=== PATIENT | male | born 1955 | race Caucasian/White ===

== ENCOUNTER 2021-12-08 17:17 | Day surgery (SDC) | payer OTHER, MEDICAID, SELFPAY ==
[2021-12-08] VITALS (50 sets, daily range): BP systolic 53–148; BP diastolic 36–134; PULSE 52–217; RESP 11–48; TEMP 36.1–36.8; O2SAT 96
--- NOTE | 2021-12-08 17:29 | W.ED.GENAD ---
Discharge Plan Disposition Patient Disposition: OTHER Condition: Critical Discharge Details Clinical Impression: Hemorrhagic shock, Ruptured aneurysm of common iliac artery Primary Care Provider: Adore Crouch ED Provider: Micah Vogt Discharge Data Discharge Date/Time-TO BE ENTERED AT DEPARTURE: 12/08/21 22:22 Discharge Physician: Joseluis Peterson Medical Decision Making 1744 -- 66-year-old male with history of type 2 diabetes who presented per EMS for hyperglycemia with a history of hernia repair x3 who presents for 2 episodes of vomiting, urinary frequency and lower abdominal pain today. Patient states he recently had an outpatient MRI near his [facility] which noted a mass and was referred for outpatient CT at [facility] for further evaluation. Blood pressure 99/64, heart rate 110s on arrival. He is afebrile and appears uncomfortable. His abdomen is soft, mildly distended and tender in the lower quadrants. Differential diagnosis includes colitis, diverticulitis, appendicitis, AAA, kidney stone, SBO. We will attempt to obtain CT from [facility]. We will place an IV, bolus IV fluids, screening labs, urinalysis, CT abdomen and pelvis and give a dose of IV Zofran and IV Tylenol and reassess. Patient given IV Zofran without relief and complaining of pain 10/18. We will hold on IV Tylenol and give a dose of IV Dilaudid and IV Phenergan. 1899 -- Labs reviewed. White blood cell count 29. Potassium 3.3. Glucose 381 with normal bicarb and anion gap minimally elevated at 13.2. Troponin negative. Pt re-evaluated during high volume in the ED. Patient noted to be significantly drowsy with worsening tachycardia after meds. Heart rate 130s to 140s. EKG noted a rate of 136, sinus tachycardia and no STEMI. Oxygen saturation diminished to high 80s to low 90s on room air and placed on 2 L nasal cannula oxygen and increased to 100%. Suspect this is after sedating narcotic medication. Systolic blood pressure 70s to 80s, now somewhat improved to 96/63. Pt inadvertantly pulled out his IV. Will place another IV and continue IV fluid hydration and send to radiology nu. Partner at bedside states that she thinks patient has prostate cancer. Will change CT abdomen pelvis to include chest abdomen pelvis. 1999 -- CT reviewed and notes a ruptured abdominal aneurysm. Patient's blood pressure has improved to a systolic of 130s. He remains drowsy and tachycardic in 130s. CT reviewed with Dr. Cervantes who recommends mass transfusion protocol. Also recommends MAST which we do not have available. 4 units of packed RBCs and FFP ordered. 1 g of TXA ordered. Stat [facility] transfer consult initiated. 2019 -- Case discussed with [facility] vascular surgery who accepts patient for transfer. We will transfer directly to the ED. Accepting ED physician Dr. Macias. 2039 -- HR remains elevated 120s and BP improving, 120s/90s. He remains drowsy but arousable and able to converse. [facility] air unavailable. [facility] ground to come by 2199. 2104 -- HR now 90s, BP more hypotensive, 91/60. Discussed with [facility] vascular surgery and pt may not survive until transport time. Discussed with general surgery Dr. Peterson who is now on-call and he will come in. Nursing hull outfit supervisor notified and will contact OR team. 2199 -- [facility] ground here.HR 110s. BP 90/67. [facility] air will not be able to intercept for possibly [address] Peterson will take to the OR. 2219 -- patient had a 30 second run of V. tach while still in the ED. He was given 150 mg amiodarone IV push. He is moaning and drowsy but able to answer some questions. SBP range between 70s-90s and prior to transfer to OR 129/70. [facility] air headed to [facility]. [facility] ground will go to the OR with Dr. Peterson. Medical Records Medical records reviewed: Yes I reviewed the patient's medical records. Imaging Data Radiologic Study: Radiologist's impression: Addendum created by Maite Solorio MD on 12/08/2021 8:25:14 PM EDT: Addendum:? There is essentially an aneurysm of the ascending aorta which measures 4 cm. Initial report created on 12/08/2021 8:16:08 PM EDT: CTA Chest With Contrast CTA Abdomen With Contrast Exam date and time: 12/08/2021 7:51 PM Age: 66 years old Clinical indication: Other: Tachycardia, abd pain, possible prostate cancer TECHNIQUE: Imaging protocol: Computed tomographic angiography of the chest with contrast. Computed tomographic angiography of the abdomen with contrast. 3D rendering (Not supervised by radiologist): MIP and/or 3D reconstructed images were created by the technologist. Radiation optimization: All CT scans at this facility use at least one of these dose optimization techniques: automated exposure control; mA and/or kV adjustment per patient size (includes targeted exams where dose is matched to clinical indication); or iterative reconstruction. Contrast material: 350; Contrast volume: 100 ml; Contrast route: INTRAVENOUS (IV);? COMPARISON: No relevant prior studies available. FINDINGS: VASCULATURE: Pulmonary arteries: Normal. No pulmonary emboli. Aorta: No aortic aneurysm. No aortic dissection. Celiac trunk and mesenteric arteries: No occlusion or significant stenosis. Renal arteries: No occlusion or significant stenosis. Left iliac arteries: The aneurysm of the left common iliac artery has ruptured. It measures 6.5 cm.. CHEST: Lungs: Unremarkable. No consolidation. No masses. Pleural spaces: Unremarkable. No pneumothorax. No pleural effusion. Heart: Unremarkable. No cardiomegaly. No pericardial effusion. ABDOMEN AND PELVIS: Liver: No mass. Gallbladder and bile ducts: Unremarkable. No calcified stones. No ductal dilation. Pancreas: Unremarkable. No mass. No ductal dilation. Spleen: Unremarkable. No splenomegaly. Adrenal glands: Unremarkable. No mass. Kidneys and ureters: Bilateral renal atrophy Stomach and bowel: Unremarkable. No obstruction. No mucosal thickening. Intraperitoneal space: Unremarkable. No free air. No significant fluid collection. Retroperitoneal space: There is a large amount of hemorrhage in the retroperitoneum consistent with ruptured aneurysm. Hemorrhage measures at least 23 x 9 cm There is intramuscular hemorrhage in the psoas muscles. Lymph nodes: Unremarkable. No enlarged lymph nodes. Bones/joints: Soft tissue mass around the sacrum and lytic process of the sacrum. See series 4, image 80. This may represent metastatic disease.. Soft tissues:? Unremarkable ?THIS REPORT CONTAINS FINDINGS THAT MAY BE CRITICAL TO PATIENT CARE. The findings were verbally communicated via telephone conference with micah vogt at 8:14PM EDT on 12/08/2021. The findings were acknowledged and understood. IMPRESSION: 1. The aneurysm of the left common iliac artery has ruptured. It measures 6.5 cm.. 2. There is a large amount of hemorrhage in the retroperitoneum consistent with ruptured aneurysm. Hemorrhage measures at least 23 x 9 cm There is intramuscular hemorrhage in the psoas muscles. 3. Soft tissue mass around the sacrum and lytic process of the sacrum. See series 4, image 80, 81. This may represent metastatic disease.. Lab Data Lab results reviewed: Yes I reviewed the patient's lab results. Labs: Laboratory Tests Range/Units 12/08/21 12/08/21 12/08/21 18:30 18:30 20:28 WBC (4.4-10.8) 10^3/uL 29.03 H* RBC (4.36-5.78) 10^6/uL 4.08 L Hgb (13.5-17.5) g/dL 13.7 Hct (40.0-50.0) % 38.9 L MCV (80-95) fL 95 MCH (27.0-33.0) pg 33.6 H MCHC (32.0-36.0) % 35.2 RDW (11.8-14.1) % 12.4 Plt Count (130-400) 10^3/uL 343 MPV (8.0-11.0) fL 9.7 Immature Gran % 0.7 Neutrophils % 80.6 Lymphocytes % 10.8 Monocytes % 7.3 Eosinophils % 0.3 Basophils % 0.3 Nucleated RBC % (0.0-0.3) % 0.0 Absolute Neutrophils (1.2-6.7) 10^3/uL 23.40 H Absolute Lymphocytes (1.2-3.4) 10^3/uL 3.14 Absolute Monocytes (0.1-0.8) 10^3/uL 2.12 H Absolute Eosinophils (0.0-0.7) 10^3/uL 0.09 Absolute Basophils (0.0-0.2) 10^3/uL 0.09 Sodium (136-145) mmol/L 139 Potassium (3.5-5.1) mmol/L 3.3 L Chloride (98-107) mmol/L 101 Carbon Dioxide (21.0-32.0) mmol/L 24.8 Anion Gap (3-11) mmol/L 13.2 H BUN (7-18) mg/dL 25 H Creatinine (0.70-1.30) mg/dL 1.3 Est GFR (CKD-EPI 2020) (mL/min/1.73m2) 60.21 Glucose (74-106) mg/dL 381 H Calcium (8.5-10.1) mg/dL 8.6 Magnesium (1.8-2.4) mg/dL 1.9 Total Bilirubin (0.2-1.0) mg/dL 0.5 AST (15-37) U/L 12 L ALT (16-63) U/L 28 Alkaline Phosphatase (46-116) U/L 68 Troponin I (<or=60) ng/L < 50 Total Protein (6.4-8.2) g/dL 6.4 Albumin (3.4-5.0) g/dL 3.2 L Crossmatch See Detail ECG Data Attestation: I personally reviewed and interpreted this ECG (s) as follows: Interpretation: rate of 136, sinus, PVCs, no stemi. HPI General Mode of arrival: ambulatory. Date/Time Provider Initiated Documentation: 12/08/21 17:26. Limitations to Documentation: no limitations. Information obtained by: patient. HPI Narrative: Patient is a 66-year-old male with a history of diabetes type 2, sleep apnea, coronary artery stent placement and hernia repair x3 reportedly brought in by EMS for abdominal pain, vomiting and hyperglycemia c/o 2 episodes of vomiting and lower abdominal pain since this afternoon. Patient states he ate a corn muffin and within 15 minutes developed lower abdominal pain and vomiting. Patient states he vomited mainly white mucus. He describes the abdominal pain as located below my navel and is pressure-like and intermittent. He states the pain is worse with any movement. Patient states he has not taken any medications for diabetes since he stopped them a few years ago as he did not want to take medication. He states he is mainly followed by a [employer] et[employer] developer but also a primary care medical doctor. Patient states he recently was having buttock pain and was referred for an outpatient MRI from his [employer] et[employer] developer and he was noted to have a mass. Patient states he was referred by his primary care doctor for a CT of the mass at [facility] which he had done last week but states he does not know the results. He denies any fever or diarrhea. He does also admit to urinary frequency today. Related Data Home Medications Medication Instructions Recorded Confirmed Unknown [No Known Home Meds] 12/08/21 12/08/21 Allergies Allergy/AdvReac Type Severity Reaction Status Date / Time house dust Allergy Intermediate Other (See Unverified 12/08/21 19:18 Comment) mold Allergy Intermediate Other (See Unverified 12/08/21 19:18 Comment) General Stated Complaint: Abd Prob Review of Systems All systems reviewed & are unremarkable except as noted in HPI and below Constitutional Constitutional: Denies chills, Denies excessive sweating, Denies fatigue, Denies fever(s), Denies weakness and Denies weight loss Eyes Eyes: Reports system reviewed and no additional complaints, except as documented and Denies blurry vision ENT Ears, Nose, Mouth, and Throat: Denies vertigo, Denies dizziness, Denies otalgia, Denies nasal congestion, Denies sore throat and Denies throat swelling Cardiovascular Cardiovascular: Denies chest pain, Denies syncope, Denies rapid heart rate and Denies dyspnea Respiratory Respiratory: Denies chest congestion, Denies cough, Denies pain on inspiration and Denies dyspnea Gastrointestinal Gastrointestinal: Reports abdominal pain, Denies diarrhea, Reports nausea and Reports vomiting Genitourinary Genitourinary: Denies hematuria, Denies dysuria and Denies flank pain Musculoskeletal Musculoskeletal: Denies back pain and Denies joint swelling Integumentary/Breasts Skin/Breast: Denies lesions and Denies rash Neurologic Neurologic: Denies behavioral changes, Denies confusion, Denies vertigo, Denies dizziness, Denies syncope, Denies localized weakness and Denies weakness Psychiatric Psychiatric: Denies behavioral changes, Denies confusion and Denies depression Endocrine Endocrine: Denies excessive sweating and Denies fatigue Hematologic/Lymphatic Hematologic/Lymphatic: Denies easy bruising and Denies lymphadenopathy Allergic/Immunologic Allergic/Immunologic: Denies throat swelling PFSH All Active Problems (Updated 12/08/21 @ 23:59 by Micah Vogt DO) Hemorrhagic shock (Acute) Ruptured aneurysm of common iliac artery (Acute) Medical History Diabetes type 2, controlled Prostate cancer Sleep apnea Surgical History History of coronary artery stent placement History of hernia repair Social History Smoking/Tobacco Use Status: Unknown Smoking risk assessment performed?: Yes Substance use type: unknown Do you feel safe at home: Yes Do you feel safe in your relationship?: Yes Exam Const General: cooperative and uncomfortable Orientation: awake HENMT Head: normal to inspection Ears: hearing grossly normal bilaterally and external ears normal General nose exam: external nose normal Face and sinus: normal facial exam Mouth: oral mucosae normal and moist mucous membranes Teeth and gingiva: poor dentition Eyes General: appearance normal, both eyes and all related structures Eyelids: eyelids normal EOM: EOM intact bilaterally Neck Neck: normal visual inspection Lymphatic: no lymphadenopathy noted Chest Chest: normal inspection of the chest Resp Effort & Inspection: normal respiratory effort and able to speak in complete sentences Auscultation: clear to auscultation bilaterally Cardio Rate: tachycardic Rhythm: regular rhythm GI Inspection: normal to inspection Palpation: soft, not firm, no guarding, no hepatosplenomegaly, no masses and tender in the LLQ, in the RLQ and suprapubicly Auscultation: hypoactive bowel sounds Skin General skin exam: no rashes or lesions noted Neuro General: patient alert and patient awake Cognition: normal cognition Speech: speech normal Motor: muscle tone normal throughout Sensory Exam: no sensory deficits noted Extrem General: normal to inspection, full ROM, capillary refill normal and no edema Psych Appearance: grossly normal Mental Status: mental status grossly normal Speech and Movement: speech and movement normal Affect: normal affect Thought Process: normal Critical Care Time Critical Care Time Critical Care Time: Yes Total Critical Care Time: 120 Attestation: I spent 120 minutes of critical care time with this patient. This does not include time spent on separately reported billable procedures.
[2021-12-08] MEDS: HYDROmorphone 2 MG/ML SYR 1 MG IVP ×2 (18:25→20:24)
[2021-12-08 18:37] LABS: Absolute Basophil Count 0.09 10^3/uL (0.0-0.2); Absolute Eosinophil Count 0.09 10^3/uL (0.0-0.7); Absolute Lymphocyte Count 3.14 10^3/uL (1.2-3.4); Basophils % 0.3; Eosinophils % 0.3; HCT 38.9 % (40.0-50.0); HGB 13.7 g/dL (13.5-17.5); Immature Grans % 0.7; Lymphocytes % 10.8; MCH 33.6 pg (27.0-33.0); MCHC 35.2 % (32.0-36.0); MCV 95 fL (80-95); MPV 9.7 fL (8.0-11.0); Monocytes % 7.3; Neutrophils % 80.6; Platelet Count 343 10^3/uL (130-400); RBC 4.08 10^6/uL (4.36-5.78); RDW 12.4 % (11.8-14.1); RDW-SD 42.7 fL
[2021-12-08 18:40] LABS: Absolute Monocyte Count 2.12 10^3/uL (0.1-0.8); WBC 29.03 10^3/uL (4.4-10.8)
[2021-12-08 18:54] LABS: ALT 28 U/L (16-63); AST 12 U/L (15-37); Albumin 3.2 g/dL (3.4-5.0); Alkaline Phosphatase 68 U/L (46-116); Anion Gap 13.2 mmol/L (3-11); BUN 25 mg/dL (7-18); Bilirubin, Total 0.5 mg/dL (0.2-1.0); CO2 24.8 mmol/L (21.0-32.0); CREATININE 1.3 mg/dL (0.70-1.30); Calcium 8.6 mg/dL (8.5-10.1); Chloride 101 mmol/L (98-107); Estimated GFR 60.21 (mL/min/1.73m2); Glucose 381 mg/dL (74-106); Magnesium 1.9 mg/dL (1.8-2.4); Potassium 3.3 mmol/L (3.5-5.1); Sodium 139 mmol/L (136-145); Total Protein 6.4 g/dL (6.4-8.2); Troponin I < 50 ng/L (<or=60)
--- NOTE | 2021-12-08 19:15 | RT.EKG_ITS ---
APPROVED REPORT Exam: Resting ECG Reason for Exam: tachycardia Patient Location: E HR:136 bpm ECG Measurements Heart Rate 136 AXIS NV 110 P 36 QRSd 110 QRS 73 QT 320 T -62 QTc 480 Conclusion Sinus tachycardia...rate> 99 Ventricular premature complex...V complex w/ short R-R interval Inferior infarct, age indeterminate...Q>35mS, T neg, II III aVF. Sinus. PVCs. No STEMI. I have reviewed and interpreted ECG and agree with software generated interpretation.
--- NOTE | 2021-12-08 19:15 | DI.CT_ITS ---
Exam(s) CT CHEST PE ABD PELVIS W EXAM: CT CHEST PE ABD PELVIS W CLINICAL HISTORY: tachycardia, abd pain, possible h/o prostate ca. TECHNIQUE: Imaging Protocol: Axial CT angiography was performed with multi-slice acquisition and m ulti-planar and/or 3D reconstructions. CONTRAST MATERIAL: Intravenous: Omnipaque 350 Contrast volume:100 ml Oral: None COMPARISON: No exams were available for comparison FINDINGS: CHEST: PULMONARY ARTERIES: There are no intra-arterial filling defects to suggest the presence of acute pulm onary emboli. LUNGS: There is no evidence of pulmonary infarction.No confluent infiltrates there are no pleural eff usions.There is density on the posterior wall of the right mainstem bronchus, possible focal mucous v ersus is a nodule at this location. MEDIASTINUM: There is no hilar nor mediastinal adenopathy. Visualized thyroid unremarkable. CARDIAC: Heart size is normal. There is no pericardial effusion. There is no significant shift of t he interventricular septum.Caliber thoracic aorta is upper normal. OSSEOUS: No significant osseous lesions.. ABDOMEN: The main findings here are in the pelvis. There is a 6.5 cm ruptured aneurysm of the left common anusha ac artery. There is a large amount of hemorrhage in the retroperitoneum and tracking along the psoas muscles. LIVER: There are no focal hepatic lesions nor dilatation of intrahepatic ducts. GALLBLADDER/BILIARY: No obvious gallbladder pathology. CBD is not dilated. PANCREAS: No evidence of pancreatic mass nor dilatation of the pancreatic duct. SPLEEN: Spleen is not enlarged. There are no intrasplenic lesions. Splenic and portal veins are mccrary nt. ADRENALS: There are no significant adrenal masses. KIDNEYS:No cysts evident. No calculi nor hydronephrosis. No solid renal masses. ABDOMINAL AORTA: Atherosclerotic and with fusiform infrarenal abdominal aortic aneurysm maximum diame ter 3.5 cm. However, there is more impressive aneurysmal dilatation of the left common iliac artery which exhibits 6.5 cm aneurysm which is ruptured and is the cause of the large amount of retroperiton eal hemorrhage. LYMPH NODES: There is no retroperitoneal or para-aortic adenopathy. ABDOMINAL WALL/GI: No evidence of significant anterior abdominal wall hernia. No bowel obstruction. PELVIS: LYMPH NODES: There is an enlarged lymph node in the lower right pelvis medial to the obturator business development intern us muscle, this measuring 2.1 x 1.7 cm (series 4/image 83) GI: No evidence of appendicitis.No evidence of sigmoid diverticulitis. URINARY BLADDER: No calculi nor masses evident REPRODUCTIVE: Prostate size upper normal. Seminal vesicles unremarkable. OSSEOUS: There is a neoplastic appearing lytic lesion in the lower sacrum-coccyx with associated soft tissue mass. No other osseous lesions in the field of view of this study. IMPRESSION: 1. There is a ruptured aneurysm of the left common iliac artery. This aneurysm exhibits diameter 6.5 cm. There is a large amount of associated hemorrhage in the retroperitoneum. There is also an aneu rysm of the lower half of the abdominal aorta which exhibits maximum diameter of 3.5 cm. 2. There is a soft tissue mass and lytic process in the lower sacrum. This has neoplastic appearance , probably metastatic disease. However, there is no obvious primary source evident in the abdomen an d pelvis on this study. 3. No evidence of acute pulmonary emboli, and there are no metastatic appearing nodules in either cindi g field nor pleural effusions. Also no intrathoracic adenopathy. First read by [facility]. RADIATION DOSE DELIVERED: 1,883.21mGy.cm Total DLP DATA REPOSITORY: All CT scans at this facility are submitted to the National Radiology Data Registry (NRDR) Dose Index Registry (DIR) with the [employer] (A[employer]). RADIATION OPTIMIZATION: All CT scans at this facility use at least one of these dose optimization te chniques: automated exposure control; mA and/or kV adjustment per patient size (includes targeted exa ms where dose is matched to clinical indication); or iterative reconstruction.
[2021-12-08] MEDS: Tranexamic Acid 1,000 MG/10 ML VIAL 1000 MG IVP ×2 (20:08→21:10)
--- NOTE | 2021-12-08 20:17 | DI.VRAD_ITS ---
Addendum created by Maite Solorio MD on 12/08/2021 8:25:14 PM EDT: Addendum: There is essentially an aneurysm of the ascending aorta which measures 4 cm. Initial report created on 12/08/2021 8:16:08 PM EDT: PROCEDURE INFORMATION: Exam: CTA Chest With Contrast CTA Abdomen With Contrast Exam date and time: 12/08/2021 7:51 PM Age: 66 years old Clinical indication: Other: Tachycardia, abd pain, possible prostate cancer TECHNIQUE: Imaging protocol: Computed tomographic angiography of the chest with contrast. Computed tomographic angiography of the abdomen with contrast. 3D rendering (Not supervised by radiologist): MIP and/or 3D reconstructed images were created by the technologist. Radiation optimization: All CT scans at this facility use at least one of these dose optimization techniques: automated exposure control; mA and/or kV adjustment per patient size (includes targeted exams where dose is matched to clinical indication); or iterative reconstruction. Contrast material: 350; Contrast volume: 100 ml; Contrast route: INTRAVENOUS (IV); COMPARISON: No relevant prior studies available. FINDINGS: VASCULATURE: Pulmonary arteries: Normal. No pulmonary emboli. Aorta: No aortic aneurysm. No aortic dissection. Celiac trunk and mesenteric arteries: No occlusion or significant stenosis. Renal arteries: No occlusion or significant stenosis. Left iliac arteries: The aneurysm of the left common iliac artery has ruptured. It measures 6.5 cm.. CHEST: Lungs: Unremarkable. No consolidation. No masses. Pleural spaces: Unremarkable. No pneumothorax. No pleural effusion. Heart: Unremarkable. No cardiomegaly. No pericardial effusion. ABDOMEN AND PELVIS: Liver: No mass. Gallbladder and bile ducts: Unremarkable. No calcified stones. No ductal dilation. Pancreas: Unremarkable. No mass. No ductal dilation. Spleen: Unremarkable. No splenomegaly. Adrenal glands: Unremarkable. No mass. Kidneys and ureters: Bilateral renal atrophy Stomach and bowel: Unremarkable. No obstruction. No mucosal thickening. Intraperitoneal space: Unremarkable. No free air. No significant fluid collection. Retroperitoneal space: There is a large amount of hemorrhage in the retroperitoneum consistent with ruptured aneurysm. Hemorrhage measures at least 23 x 9 cm There is intramuscular hemorrhage in the psoas muscles. Lymph nodes: Unremarkable. No enlarged lymph nodes. Bones/joints: Soft tissue mass around the sacrum and lytic process of the sacrum. See series 4, image 80. This may represent metastatic disease.. Soft tissues: Unremarkable THIS REPORT CONTAINS FINDINGS THAT MAY BE CRITICAL TO PATIENT CARE. The findings were verbally communicated via telephone conference with micah dewitt at 8:14PM EDT on 12/08/2021. The findings were acknowledged and understood. IMPRESSION: 1. The aneurysm of the left common iliac artery has ruptured. It measures 6.5 cm.. 2. There is a large amount of hemorrhage in the retroperitoneum consistent with ruptured aneurysm. Hemorrhage measures at least 23 x 9 cm There is intramuscular hemorrhage in the psoas muscles. 3. Soft tissue mass around the sacrum and lytic process of the sacrum. See series 4, image 80, 81. This may represent metastatic disease.. Dictated and Authenticated by: Maite Solorio MD. Ordering:DANIS Gould MD
[2021-12-08 20:47] LABS: Source Nasal/Nares
[2021-12-08] MEDS: Ondansetron 4 MG/2 ML VIAL IVP (21:00)
[2021-12-08] MEDS: Normal Saline 1,000 ML 1000 ML IV (21:12)
[2021-12-08 21:17] LABS: COVID-19 PCR Negative (Negative)
--- NOTE | 2021-12-08 22:45 | NUR.NOTE ---
The patient was somnolent after his first dose of dilaudid, however he roused to his name and noted good pain relief. Blood and FFP were given.There were multiple caregivers in the room at any time, including anesthesia providers, surgery, and members of the [facility] team. He was taken to the OR at approximately 22:20
--- NOTE | 2021-12-08 23:46 | W.PM.DS.N ---
Date of service: 12/08/21 Time of Service: 23:46 DS: Diagnosis Discharge Diagnosis (1) Ruptured aneurysm of common iliac artery: Status: Acute Asessment and Plan: Intraoperative from hemorrhagic shock Discharge Plan Disposition Patient Disposition: Discharge Details Attending Provider: Joseluis Peterson Primary Care Provider: Adore Crouch Discharge Data Date/Time: 12/08/21 23:06 Cause of : Hemorrhage Discharge Physician: Joseluis Peterson DS: Summary Time Spent with Patient providing and/or coordinating discharge services: Less than 30 minutes Status at Discharge Functional status at discharge: bed bound Overall status at discharge: other () Mental Status: other () Speech and Movement: other (none) Mood: other () Affect: other () Exam Psych Mental Status: other () Speech and Movement: other (none) Mood: other () Affect: other () DS: Data Vitals/I&O Vitals and I&O: Vital Signs Temperature 97.0 F L 12/08/21 18:25 Temperature Source Temporal Artery Scan 12/08/21 17:30 Pulse 84 12/08/21 21:06 Pulse 88 12/08/21 21:06 Respiratory Rate 28 H 12/08/21 21:06 Respiratory Effort 12/08/21 17:29 Blood Pressure 94/82 L 12/08/21 21:06 Blood Pressure Mean 85 12/08/21 21:06 Blood Pressure Position Sitting 12/08/21 17:30 Pulse Oximetry 96 12/08/21 17:30 Oxygen Delivery Method Room Air 12/08/21 17:30 Oxygen Flow Rate 0 12/08/21 17:30 Pain Level 9 12/08/21 22:39 Intake & Output 12/07/21 12/08/21 12/08/21 23:59 11:59 23:59 Intake Total Balance Weight 227 lb 1.218 oz Intake: IV Data Completed and Pending Labs on day of discharge: Labs from last 24 hours 12/08/21 12/08/21 12/08/21 20:45 20:28 20:03 WBC RBC Hgb Hct MCV MCH MCHC RDW Plt Count MPV Immature Gran % Neutrophils % Lymphocytes % Monocytes % Eosinophils % Basophils % Nucleated RBC % Absolute Neutrophils Absolute Lymphocytes Absolute Monocytes Absolute Eosinophils Absolute Basophils VBG pH Pending VBG pCO2 Pending VBG pO2 Pending VBG HCO3 Pending VBG Total CO2 Pending VBG O2 Saturation Pending VBG Base Excess Pending Sodium Potassium Chloride Carbon Dioxide Anion Gap BUN Creatinine Est GFR (CKD-EPI 2020) Glucose Calcium Magnesium Total Bilirubin AST ALT Alkaline Phosphatase Troponin I Total Protein Albumin Lipase COVID-19 Source Nasal/Nares SARS-CoV-2 (PCR) Negative Patient ABO/Rh A Positive Antibody Screen NEGATIVE Crossmatch See Detail 12/08/21 12/08/21 12/08/21 19:23 18:30 18:30 WBC 29.03 H* RBC 4.08 L Hgb 13.7 Hct 38.9 L MCV 95 MCH 33.6 H MCHC 35.2 RDW 12.4 Plt Count 343 MPV 9.7 Immature Gran % 0.7 Neutrophils % 80.6 Lymphocytes % 10.8 Monocytes % 7.3 Eosinophils % 0.3 Basophils % 0.3 Nucleated RBC % 0.0 Absolute Neutrophils 23.40 H Absolute Lymphocytes 3.14 Absolute Monocytes 2.12 H Absolute Eosinophils 0.09 Absolute Basophils 0.09 VBG pH VBG pCO2 VBG pO2 VBG HCO3 VBG Total CO2 VBG O2 Saturation VBG Base Excess Sodium 139 Potassium 3.3 L Chloride 101 Carbon Dioxide 24.8 Anion Gap 13.2 H BUN 25 H Creatinine 1.3 Est GFR (CKD-EPI 2020) 60.21 Glucose 381 H Calcium 8.6 Magnesium 1.9 Total Bilirubin 0.5 AST 12 L ALT 28 Alkaline Phosphatase 68 Troponin I < 50 Total Protein 6.4 Albumin 3.2 L Lipase Pending COVID-19 Source SARS-CoV-2 (PCR) Patient ABO/Rh Antibody Screen Crossmatch PFSH All Active Problems Ruptured aneurysm of common iliac artery (Acute) Hypotension (Acute) Medical History Diabetes type 2, controlled Prostate cancer Sleep apnea Surgical History History of coronary artery stent placement History of hernia repair Social History Smoking/Tobacco Use Status: Unknown Smoking risk assessment performed?: Yes Substance use type: unknown Do you feel safe at home: Yes Do you feel safe in your relationship?: Yes
--- NOTE | 2021-12-08 23:57 | ROE_ITS ---
Date of service: 12/08/21 Time of Service: 23:57 Operative Note Operative Note DATE OF PROCEDURE: 12/08/21 PRE-OP DIAGNOSIS: Ruptured left common iliac artery with hemorrhagic shock POST-OP DIAGNOSIS: same PROCEDURE: Exploratory laparotomy SURGEON: Joseluis Peterson HIRED HELP: Josiah Carmona ANESTHESIA TYPE: General LMA/ETT Refer to Anesthesia Record PATHOLOGY: none sent COMPLICATIONS: Other (Intraoperative ) Patient was transported [place]: [place] [place] Patient's condition: Indications: Benji is a 66-year-old male who walked into the emergency department with lower abdominal pain and vomiting. He was hypotensive and tachycardic. CAT scan demonstrated a ruptured left common iliac artery aneurysm. Attempts were made to arrange for transfer to [facility]. Unfortunately, aeromedical transport was not available. He was resuscitated with blood products, and we moved emergently to the operating room because of refractory shock despite resuscitation Procedure Description: We began resuscitation in the emergency department. I placed a right-sided femoral triple-lumen catheter to assist with additional access for blood product transfusion which was being administered using the Bates rapid infuser. I quickly explained to Benji that he was dying from a ruptured aneurysm and tj millicent was the only way to try to fix it. He provided informed verbal consent, but because of the urgency of the situation, he did not sign a consent document. We then moved emergently to the operating room. I inserted a Odonnell urinary catheter using aseptic technique, and I prepped and draped the abdomen in the usual fashion. I prepped both groins into the field. Next, with the induction of general anesthesia, I made a large midline laparotomy incision. I dissected down to the fascia sharply. I opened the fascia along the length of the midline with large Blood scissors. There was a previous ventral hernia mesh that I divided. There was hemoperitoneum. I packed all 4 quadrants. I then used the Bookwalter to establish exposure. Next, I incised the peritoneum of the ascending colon and used a Cattell- Barasch maneuver to expose the retroperitoneum. I mobilized the entire small bowel mesentery to gain control of the descending aorta. There was massive retroperitoneal hematoma which was quickly evacuated. Next, using direct pressure on the aorta against the vertebral bodies we established aortic occlusion. Next I incised the overlying soft tissue of the aorta with Metzenbaum scissors. I dissected both sides of the aorta and used a straight vascular clamp to control the aorta immediately at the bifurcation of the iliacs. There was blood welling up from zone 3 of the pe lvis, and it appeared to be more on the left side consistent with the preoperative imaging. The large nature of the aneurysm precluded control of the left iliac artery proper. I tried to make an incision in the groin to get control of the left common femoral artery in an effort to reduce backbleeding from the pelvis. But during this time, his hemodynamics continued to deteriorate despite blood product resuscitation and the administration of several vasoactive medications. Therefore, I turned my attention back to the laparotomy incision and sharply dissected over the iliac aneurysm down towards the left external iliac artery. I then used tight packs to completely obliterate the left hemipelvis space and held direct pressure over the ruptured aneurysmal iliac artery. Despite ongoing efforts by anesthesia services to continue the resuscitation, he lost a palpable pulse in the descending aorta proximal to the aortic cross-clamp. External chest compressions were briefly initiated, but we were never able to reestablish any perfusable organized cardiac activity. I certified the , and we stop the operating. I removed the surgical instruments and closed the midline laparotomy incision with skin jewel as well as a left groin incision. At the conclusion of the operation, I contacted Camila Winstonradha at [phone]. She identified herself as his partner, and I explained his diagnosis and the course of the efforts to save him. I answered all of her questions as best I could, and provided contact information for any other questions that might arise.
--- NOTE | 2021-12-09 00:10 | ANES.PREOP_ITS ---
General Info Date of Service Date Performed: 12/09/21 Height: 6 ft Weight: 103 kg Body Mass Index (BMI): 30.8 Surgical Procedure: Operation Date: 12/08/21 21:45 Proposed Procedure Side Surgeon p Exploratory Laparotomy Not Applicable Joseluis Peterson MD Meds Allergies and Home Medications Allergies Allergy/AdvReac Type Severity Reaction Status Date / Time house dust Allergy Intermediate Other (See Unverified 12/08/21 19:18 Comment) mold Allergy Intermediate Other (See Unverified 12/08/21 19:18 Comment) Home Medication Medication Instructions Recorded Unknown [No Known Home Meds] 12/08/21 Current Visit Medications: Current Medications Generic Name Dose Route Start Last Admin Trade Name Freq PRN Reason Stop Dose Admin Ringer's Solution 1,000 mls @ 150 mls/hr 12/08/21 21:15 IV INFUSION TAMMIE PFSH Active Problems Active Problems: Problem Status Onset Code Hemorrhagic shock R57.8 Ruptured aneurysm of common iliac artery I72.3 Medical History Medical History Diabetes type 2, controlled Prostate cancer Sleep apnea Surgical History Surgical History History of coronary artery stent placement History of hernia repair Tobacco Smoking/Tobacco Use Status: Unknown Substance Use Substance use type: unknown Vital Signs and Lab Results Vital Signs Most Recent Vital Signs in EMR: Most Recent Vital Signs Temp Pulse Resp BP Pulse Ox 36.1 C L 84 28 H 94/82 L 96 12/08/21 18:25 12/08/21 21:06 12/08/21 21:06 12/08/21 21:06 12/08/21 17:30 Lab Results Result Diagrams: 12/08/21 18:30 12/08/21 18:30 Blood Type / Crossmatch: Patient ABO/Rh A Positive 12/08/21 Antibody Screen NEGATIVE 12/08/21 Crossmatch See Detail 12/08/21 Complete Blood Count: White Blood Count 29.03 10^3/uL (4.4-10.8) H* 12/08/21 18:30 Red Blood Count 4.08 10^6/uL (4.36-5.78) L 12/08/21 18:30 Hemoglobin 13.7 g/dL (13.5-17.5) 12/08/21 18:30 Hematocrit 38.9 % (40.0-50.0) L 12/08/21 18:30 Platelet Count 343 10^3/uL (130-400) 12/08/21 18:30 Complete Metabolic Panel: Sodium Level 139 mmol/L (136-145) 12/08/21 18:30 Potassium Level 3.3 mmol/L (3.5-5.1) L 12/08/21 18:30 Chloride Level 101 mmol/L (98-107) 12/08/21 18:30 Carbon Dioxide Level 24.8 mmol/L (21.0-32.0) 12/08/21 18:30 Blood Urea Nitrogen 25 mg/dL (7-18) H 12/08/21 18:30 Creatinine 1.3 mg/dL (0.70-1.30) 12/08/21 18:30 Magnesium Level 1.9 mg/dL (1.8-2.4) 12/08/21 18:30 Calcium Level 8.6 mg/dL (8.5-10.1) 12/08/21 18:30 Albumin 3.2 g/dL (3.4-5.0) L 12/08/21 18:30 Glucose Level 381 mg/dL (74-106) H 12/08/21 18:30 Liver Function Panel: Alanine Aminotransferase (ALT/SGPT) 28 U/L (16-63) 12/08/21 18: 30 Aspartate Amino Transf (AST/SGOT) 12 U/L (15-37) L 12/08/21 18: 30 Coagulation Panel: No Data to Display Cardiac Panel: Troponin I < 50 ng/L (<or=60) 12/08/21 Arterial Blood Gas: No Data to Display Venous Blood Gas: Venous Blood pH Pending 12/08/21 20:03 Venous Blood Partial Pressure O2 Pending 12/08/21 20:03 Venous Blood Partial Pressure CO2 Pending 12/08/21 20:03 Venous Blood Oxygen Saturation Pending 12/08/21 20:03 Venous Blood HCO3 Pending 12/08/21 20:03 Venous Blood Base Excess Pending 12/08/21 20:03 Venous Blood Total Carbon Dioxide Pending 12/08/21 20:03 Pancreas Panel: Lipase Pending 12/08/21 19:23 Thyroid Panel: No Data to Display Infectious Disease: Coronavirus (COVID-19)(PCR) Negative (Negative) 12/08/21 20:45 Coronavirus 2019 Source Nasal/Nares 12/08/21 20:45 Blood Cultures: No Data to Display Toxicology Panel: No Data to Display Anesthesia Assessment and Plan Anesthesia History Personal History: Other Family History: Other Exercise Tolerance Exercise Tolerance: Unknown Cardiac & Pulmonary Exam Cardiac Exam: Other Pulmonary Exam: Other Implantable Cardiac Device Does patient have a Pacemaker or an ICD?: No Airway Exam Known Difficult Airway: No Mallampati Class: 1 Mouth Opening: Normal (> 3cm) Thyromental Distance: Greater than 3 cm Facial Hair: Full [place] Neck Range of Motion: Full ROM Neck Circumference: Normal Teeth Condition: Generalized Poor Dentition ASA Classification ASA Score: ASA 5 Emergency Case?: Yes NPO Status NPO Status: Unable to Assess Anesthesia Plan Resuscitation Status: Full Code Anesthesia Technique: General Anesthesia Airway Planned: Endotracheal Tube Monitors Used: Standard Monitors, Arterial Line and Central Line Preoperative Comments:: Critically ill with ruptured abdominal aneurysm in the ED. Helic[facility] transport delayed [facility] 30 minutes out with a 1hr 15 minute transport to [facility] [place]. Decision made to bring pt. to OR for emergent aorta clamping, packing, and then transport to tertiary care. Central Line placed in ED, Unsuccessful arterial line by [facility]. Pt. awake, hypotensive, tachycardic being actively resuscitated with [place] fluid warmer. OR prepared and patient brought to OR. Limited medical history known. Emergency case with no consent obtained, other than verbal consent from patient.
[2021-12-09 00:17] VITALS: BMI 30.8
--- NOTE | 2021-12-09 09:48 | NUR.NOTE ---
Nursing Note: Feli from Pharmacy was unable to find any documentation from the ED on this patient. Accessed patient chart to confirm that there was documentation by ED staff. Printed the ED visit summary and ED provider note for her.
== END 2021-12-08 22:23 | disposition home or self-care (01) ==
LOC: ER 20:30 → SUR 22:22
PROVIDERS: Emergency Provider Physician Assistant; PCP Family Medicine; Visit Provider Surgery
PROC: (CPT 49000; principal; 2021-12-08 21:45)
DX: I72.3 Aneurysm of iliac artery (principal); R57.8 Other shock; Z20.822 Contact with and (suspected) exposure to COVID-19; E11.9 Type 2 diabetes mellitus without complications; G47.30 Sleep apnea, unspecified; Z95.5 Presence of coronary angioplasty implant and graft
CPT/HCPCS: 49000; 71275; 74177; 80053; 82805; 83690; 86850; 86900; 86901; 86920; 87635; 93005; 96361; 96374; 96375; 96376; 99291; 99292; 83735; 84484; 85025; 93010; J0171; J0610; J1170; J2250; J2405; J3010; P9016; P9059